=== PATIENT | female | born 1960 | race Caucasian/White ===

== ENCOUNTER 2018-11-08 02:06 | Emergency (ER) | payer OTHER ==
[~2018-11-08] VITALS: Ht 162.6 cm; Wt 65.8 kg
[2018-11-08] MEDS ORDERED: CLEOCIN HCL150 MG PO (03:09)
[2018-11-08] MEDS ORDERED: TRAMADOL 50 MG50 MG PO (03:10)
[2018-11-08 03:26] VITALS: BP 149/91
== END 2018-11-08 03:34 | disposition home or self-care (01) ==
LOC: M.ERS 02:06
DX: L02.414 Cutaneous abscess of left upper limb (principal); L02.413 Cutaneous abscess of right upper limb; F17.210 Nicotine dependence, cigarettes, uncomplicated; E11.9 Type 2 diabetes mellitus without complications; M79.7 Fibromyalgia; M19.90 Unspecified osteoarthritis, unspecified site; K58.9 Irritable bowel syndrome, unspecified; K21.9 Gastro-esophageal reflux disease without esophagitis; I10 Essential (primary) hypertension; N80.9 Endometriosis, unspecified; Z88.5 Allergy status to narcotic agent; Z98.890 Other specified postprocedural states

== ENCOUNTER 2018-11-11 07:28 | Emergency (ER) | payer OTHER ==
[~2018-11-11] VITALS: Ht 162.6 cm; Wt 65.8 kg
[~2018-11-11 07:28] MED LIST: CLEOCIN HCL150 MG PO; TRAMADOL 50 MG50 MG PO
[2018-11-11 07:50] VITALS: BP 157/92
== END 2018-11-11 07:51 | disposition home or self-care (01) ==
LOC: M.ERS 07:28
DX: Z48.01 Encounter for change or removal of surgical wound dressing (principal); L02.411 Cutaneous abscess of right axilla; E11.9 Type 2 diabetes mellitus without complications; M79.7 Fibromyalgia; M19.90 Unspecified osteoarthritis, unspecified site; K58.9 Irritable bowel syndrome, unspecified; K21.9 Gastro-esophageal reflux disease without esophagitis; I10 Essential (primary) hypertension; N80.9 Endometriosis, unspecified; F17.210 Nicotine dependence, cigarettes, uncomplicated; Z98.890 Other specified postprocedural states; Z88.5 Allergy status to narcotic agent; Z88.6 Allergy status to analgesic agent